=== PATIENT | female | born 1965 | race African-American/Black ===

== ENCOUNTER 2019-01-16 16:17 | Emergency (ER) | payer OTHER ==
[~2019-01-16] VITALS: Ht 165.1 cm; Wt 106.6 kg
--- OUTSIDE RECORDS SUMMARY | 2019-01-16 16:19 | XMS REPORT ---
Author [facility] Address Unknown Phone Unavailable Care Team Providers Care Ostomy Nurse Name Role Phone Unavailable Unavailable Payers Payer Name Policy Type Policy Number Effective Date Expiration Date Problems This patient has no known problems. Allergies, Adverse Reactions, Alerts Allergy Name Allergy Type Status Severity Reaction(s) Onset Date Inactive Date Treating Clinician Comments lisinopril DA Active U 2018-09-30 00:00:00 clarithromycin DA Active U 2018-09-30 00:00:00 trazodone DA Active U 2018-09-30 00:00:00 lisinopril DA Active U 2016-01-22 00:00:00 clarithromycin DA Active U 2016-01-22 00:00:00 trazodone DA Active U 2016-01-22 00:00:00 Medications This patient has no known medications. Encounters Start Date/Time End Date/Time Encounter Type Admission Type Attending [facility] Care Department Encounter ID 2018-10-27 00:00:00 2018-10-27 00:00:00 Outpatient [facility] [id number] 2018-10-24 00:00:00 2018-10-24 00:00:00 Outpatient [facility] [id number] 2018-10-07 00:00:00 2018-10-07 00:00:00 Outpatient [facility] [id number] 2018-10-05 00:00:00 2018-10-05 00:00:00 Outpatient [facility] [id number] 2018-09-20 00:00:00 2018-09-20 00:00:00 Outpatient [facility] [id number] 2018-09-07 11:28:48 2018-09-07 11:28:48 Outpatient [facility] [id number] 2018-09-07 10:35:33 2018-09-07 10:35:33 Outpatient [facility] [id number] 2018-08-31 00:00:00 2018-08-31 00:00:00 Outpatient [facility] [id number] 2018-08-19 00:00:00 2018-08-19 00:00:00 Outpatient [facility] [id number] 2018-08-17 00:00:00 2018-08-17 00:00:00 Outpatient [facility] [id number] 2018-08-09 00:00:00 2018-08-09 00:00:00 Outpatient [facility] [id number] 2018-08-04 00:00:00 2018-08-04 00:00:00 Outpatient [facility] [id number] 2018-07-14 15:00:21 2018-07-14 15:00:21 Outpatient [facility] [id number] 2018-07-05 13:20:59 2018-07-05 13:20:59 Outpatient [facility] [id number] 2018-07-04 00:00:00 2018-07-04 00:00:00 Outpatient [facility] [id number] 2018-06-08 00:00:00 2018-06-08 00:00:00 Outpatient [facility] [id number] 2018-05-10 00:00:00 2018-05-10 00:00:00 Outpatient [facility] [id number] 2018-05-05 15:29:36 2018-05-05 15:29:36 Outpatient [facility] [id number] 2018-04-27 00:00:00 2018-04-27 00:00:00 Outpatient [facility] [id number] 2018-04-20 10:42:28 2018-04-20 10:42:28 Outpatient [facility] [id number] 2018-03-28 08:26:34 2018-03-28 08:26:34 Outpatient [facility] [id number] 2018-03-09 15:00:34 2018-03-09 15:00:34 Outpatient [facility] [id number] 2018-02-21 00:00:00 2018-02-21 00:00:00 Outpatient [facility] [id number] 2018-02-14 00:00:00 2018-02-14 00:00:00 Outpatient [facility] [id number] 2018-02-09 00:00:00 2018-02-09 00:00:00 Outpatient [facility] [id number] 2018-02-07 11:58:24 2018-02-07 11:58:24 Outpatient [facility] [id number] 2018-02-07 11:12:55 2018-02-07 11:12:55 Outpatient [facility] [id number] 2018-02-07 10:04:36 2018-02-07 10:04:36 Outpatient [facility] [id number] 2018-01-31 00:00:00 2018-01-31 00:00:00 Outpatient [facility] [id number] 2018-01-31 00:00:00 2018-01-31 00:00:00 Outpatient [facility] [id number] 2018-01-25 00:00:00 2018-01-25 00:00:00 Outpatient [facility] [id number] 2018-01-07 09:15:58 2018-01-07 09:15:58 Outpatient [facility] [id number] 2018-01-07 08:35:07 2018-01-07 08:35:07 Outpatient [facility] [id number] 2017-12-22 00:00:00 2017-12-22 00:00:00 Outpatient [facility] [id number] 2017-12-20 00:00:00 2017-12-20 00:00:00 Outpatient [facility] [id number] 2017-12-16 13:49:15 2017-12-16 13:49:15 Outpatient [facility] [id number] 2017-12-08 00:00:00 2017-12-08 00:00:00 Outpatient [facility] [id number] 2017-12-02 08:51:27 2017-12-02 08:51:27 Outpatient [facility] [id number] 2017-11-12 11:26:11 2017-11-12 11:26:11 Outpatient [facility] [id number] 2017-11-12 10:20:35 2017-11-12 10:20:35 Outpatient [facility] [id number] 2017-11-04 07:58:26 2017-11-04 07:58:26 Outpatient [facility] [id number] 2017-11-02 11:52:11 2017-11-02 11:52:11 [facility] [id number] 2017-10-19 00:00:00 2017-10-19 00:00:00 Outpatient [facility] [id number] 2017-10-11 14:11:14 2017-10-11 14:11:14 Outpatient [facility] [id number] 2017-10-11 00:00:00 2017-10-11 00:00:00 Outpatient [facility] [id number] 2017-09-16 14:38:37 2017-09-16 14:38:37 Outpatient [facility] [id number] 2017-08-31 12:02:38 2017-08-31 12:02:38 Outpatient [facility] [id number] 2017-08-26 07:53:24 2017-08-26 07:53:24 Outpatient [facility] [id number] 2017-08-26 00:00:00 2017-08-26 00:00:00 Outpatient [facility] [id number] 2017-08-23 00:00:00 2017-08-23 00:00:00 Outpatient [facility] [id number] 2017-08-18 14:18:24 2017-08-18 14:18:24 Outpatient [facility] [id number] 2017-08-16 08:46:20 2017-08-16 08:46:20 Outpatient [facility] [id number] 2017-08-13 00:00:00 2017-08-13 00:00:00 Outpatient [facility] [id number] 2017-08-09 00:00:00 2017-08-09 00:00:00 Outpatient [facility] [id number] 2017-07-29 00:00:00 2017-07-29 00:00:00 Inpatient [facility] [id number] 2017-07-29 00:00:00 2017-07-29 00:00:00 Outpatient [facility] [id number] 2017-07-14 14:53:05 2017-07-14 14:53:05 Outpatient [facility] [id number] 2017-06-24 14:54:10 2017-06-24 14:54:10 Outpatient [facility] [id number] 2017-06-24 13:23:39 2017-06-24 13:23:39 Outpatient [facility] [id number] 2017-06-15 16:02:52 2017-06-15 16:02:52 Outpatient [facility] [id number] 2017-06-14 14:01:32 2017-06-14 14:01:32 Outpatient [facility] [id number] 2017-06-14 00:00:00 2017-06-14 00:00:00 Outpatient [facility] [id number] 2017-06-09 00:00:00 2017-06-09 00:00:00 Outpatient [facility] [id number] 2017-06-02 11:36:50 2017-06-02 11:36:50 Outpatient [facility] [id number] 2017-05-17 15:24:10 2017-05-17 15:24:10 Outpatient [facility] [id number] 2017-05-13 12:05:27 2017-05-13 12:05:27 Outpatient [facility] [id number] 2017-05-13 10:11:59 2017-05-13 10:11:59 Outpatient [facility] [id number] 2017-04-21 00:00:00 2017-04-21 00:00:00 Outpatient [facility] [id number] 2017-04-15 00:00:00 2017-04-15 00:00:00 Outpatient [facility] [id number] 2017-04-14 08:33:20 2017-04-14 08:33:20 Outpatient [facility] [id number] 2017-04-14 08:26:52 2017-04-14 08:26:52 Outpatient [facility] [id number] 2017-04-12 14:36:01 2017-04-12 14:36:01 Outpatient [facility] [id number] 2016-09-02 09:14:09 2016-09-02 09:14:09 Outpatient [facility] [id number]
[2019-01-16] MEDS ORDERED: ORPHENADRINE CITRATE 30 MG/ML VIAL IM ONE (18:00)
[2019-01-16] MEDS ORDERED: KETOROLAC TROMETHAMINE 60 MG/2 ML VIAL IM ONE (18:00)
[2019-01-16] MEDS ORDERED: DEXAMETHASONE SOD PHOS 10 MG/1 ML VIAL IM ONE (18:00)
--- NOTE | 2019-01-16 19:01 | Diagnostic Imaging Report ---
HIP RIGHT 2-3 VW (+/- PELVIS) - 3 views HISTORY: Pain. Fall. Pain on the right hip. COMPARISON: None available. FINDINGS: Bones: No acute displaced fracture. Osseous alignment is within normal limits. Joints: The joint spaces are well-maintained. Soft tissues: The soft tissues appear unremarkable. IMPRESSION: No acute radiographic abnormality. Signed by: Dr. Jones Mendoza M.D. on 01/16/2019 6:58 PM
--- NOTE | 2019-01-16 19:04 | Diagnostic Imaging Report ---
Lumbar Spine Radiographs: 5 views including bilateral external HISTORY: Pain. Fall. Pain on the right hip. COMPARISON: None available. DISCUSSION: Some of the osseous structures are partially obscured by stool and bowel gas. Grade 1 anterolisthesis of L3 on L4 secondary to facet arthropathy. The alignment of the spine is within normal limits. No displaced fracture or compression deformity is identified. Disc Spaces: Mild multilevel disc space narrowing, especially at L3-L4. Facets: Moderate to severe facet arthrosis in the lower lumbar spine. Mild to moderate degenerative changes in bilateral SI joints. IMPRESSION: Mild to moderate degenerative changes in lumbar spine. No acute osseous abnormalities. Signed by: Dr. Jones Mendoza M.D. on 01/16/2019 7:00 PM
--- NOTE | 2019-01-16 19:07 | Diagnostic Imaging Report ---
THORACIC SPINE 2VW - 2 views HISTORY: Pain. Right-sided hip pain after fall. COMPARISON: None available. FINDINGS: Bones: No acute displaced fracture. Osseous alignment is within normal limits. Joints: The joint spaces are well-maintained. Small multilevel anterior osteophytes. Soft tissues: The soft tissues appear unremarkable. IMPRESSION: No acute radiographic abnormality in the thoracic spine. Signed by: Dr. Jones Mendoza M.D. on 01/16/2019 7:04 PM
== END 2019-01-16 23:34 | disposition home or self-care (01) ==
LOC: ER 16:17
DX: G89.11 Acute pain due to trauma (principal); M54.6 Pain in thoracic spine; M25.551 Pain in right hip; M54.5 Low back pain; W01.0XXA Fall on same level from slipping, tripping and stumbling without subsequent striking against object, initial encounter; Y92.008 Other place in unspecified non-institutional (private) residence as the place of occurrence of the external cause; I10 Essential (primary) hypertension; E11.9 Type 2 diabetes mellitus without complications; E78.5 Hyperlipidemia, unspecified; F41.9 Anxiety disorder, unspecified
CPT/HCPCS: 72070; 72110; 73502; 99283; J1100; J1885; J2360

== ENCOUNTER 2021-03-10 16:24 | Emergency (ER) | payer OTHER ==
[~2021-03-10] VITALS: Ht 165.1 cm; Wt 106.6 kg
[2021-03-10 17:28] LABS: BASOPHILS % 0.5 % (0.0-1.0); EOSINOPHILS # (AUTO) 0.2 (0.0-0.4); EOSINOPHILS % 2.7 % (0.0-6.0); HEMATOCRIT 35.4 % (34.2-44.1); HEMOGLOBIN 11.5 g/dL (12.0-16.0); LYMPHOCYTES % 36.2 % (18.0-39.1); MEAN CORPUSCULAR HEMOGLOBIN 27.7 pg (28-32); MEAN CORPUSCULAR HGB CONC 32.5 g/dL (31-35); MEAN CORPUSCULAR VOLUME 85.3 fL (81-99); MONOCYTES # (AUTO) 0.4 (0.2-0.8); MONOCYTES % 7.7 % (4.4-11.3); NEUTROPHILS % 52.7 % (38.7-80.0); PLATELET COUNT 331 x10e3/uL (140-360); RED BLOOD COUNT 4.15 x10e6/uL (3.6-5.1); RED CELL DISTRIBUTION WIDTH 14.6 % (11.7-14.4)
[2021-03-10 17:52] LABS: AMPHETAMINES SCREEN,URINE NEGATIVE (NEGATIVE); BENZODIAZEPINES SCREEN,URINE NEGATIVE (NEGATIVE); PHENCYCLIDINE SCREEN,URINE NEGATIVE (NEGATIVE)
[2021-03-10 18:49] LABS: ALANINE AMINOTRANSFERASE 121 IU/L (0-55); ALBUMIN 3.7 g/dL (3.5-5.0); ALBUMIN/GLOBULIN RATIO 1.1 (0.8-2.0); ALKALINE PHOSPHATASE 64 IU/L (40-150); ANION GAP 13.9 mmol/L (8-16); BLOOD UREA NITROGEN 21 mg/dL (7-26); BUN/CREATININE RATIO 20 (6-25); CALCIUM 8.7 mg/dL (8.4-10.2); CARBON DIOXIDE 23 mmol/L (22-29); CHLORIDE 109 mmol/L (98-107); CREATINE KINASE 269 IU/L (29-168); CREATININE, SERUM 1.06 mg/dL (0.57-1.11); EST GLOMERULAR FILTRATION RATE > 60 ML/MIN (60-); GLUCOSE 120 mg/dL (74-118); POTASSIUM 3.9 mmol/L (3.5-5.1); SODIUM 142 mmol/L (136-145)
== END 2021-03-10 20:35 | disposition home or self-care (01) ==
LOC: ER 20:27
DX: F41.9 Anxiety disorder, unspecified (principal); R94.31 Abnormal electrocardiogram [ECG] [EKG]; I10 Essential (primary) hypertension; E11.65 Type 2 diabetes mellitus with hyperglycemia; E78.5 Hyperlipidemia, unspecified; K21.9 Gastro-esophageal reflux disease without esophagitis; G47.30 Sleep apnea, unspecified
CPT/HCPCS: 36415; 71046; 80053; 80307; 82550; 82553; 84484; 85025; 93005; 99283

== ENCOUNTER 2021-04-08 20:54 | Emergency (ER) | payer OTHER ==
[~2021-04-08] VITALS: Ht 165.1 cm; Wt 106.6 kg
[2021-04-08 22:40] LABS: BASOPHILS % 0.5 % (0.0-1.0); EOSINOPHILS # (AUTO) 0.1 (0.0-0.4); EOSINOPHILS % 1.3 % (0.0-6.0); HEMATOCRIT 36.6 % (34.2-44.1); HEMOGLOBIN 12.1 g/dL (12.0-16.0); LYMPHOCYTES # (AUTO) 2.5 (1.0-3.2); LYMPHOCYTES % 39.2 % (18.0-39.1); MEAN CORPUSCULAR HEMOGLOBIN 28.5 pg (28-32); MEAN CORPUSCULAR HGB CONC 33.1 g/dL (31-35); MEAN CORPUSCULAR VOLUME 86.3 fL (81-99); MONOCYTES # (AUTO) 0.5 (0.2-0.8); MONOCYTES % 8.5 % (4.4-11.3); NEUTROPHILS # (AUTO) 3.2 (2.1-6.9); NEUTROPHILS % 50.3 % (38.7-80.0); PLATELET COUNT 343 x10e3/uL (140-360); RED BLOOD COUNT 4.24 x10e6/uL (3.6-5.1)
[2021-04-08 22:59] LABS: AMYLASE 34 U/L (25-125); LIPASE 29 U/L (8-78)
[2021-04-08 23:00] LABS: ALANINE AMINOTRANSFERASE 35 IU/L (0-55); ALBUMIN 3.9 g/dL (3.5-5.0); ALBUMIN/GLOBULIN RATIO 1.2 (0.8-2.0); ALKALINE PHOSPHATASE 62 IU/L (40-150); ANION GAP 18.4 mmol/L (8-16); BLOOD UREA NITROGEN 14 mg/dL (7-26); BUN/CREATININE RATIO 14 (6-25); CALCIUM 8.5 mg/dL (8.4-10.2); CARBON DIOXIDE 22 mmol/L (22-29); CHLORIDE 105 mmol/L (98-107); CREATININE, SERUM 0.99 mg/dL (0.57-1.11); EST GLOMERULAR FILTRATION RATE > 60 ML/MIN (60-); GLUCOSE 155 mg/dL (74-118); POTASSIUM 3.4 mmol/L (3.5-5.1); SODIUM 142 mmol/L (136-145)
[2021-04-08 23:41] LABS: CLARITY,URINE SL CLOUDY (CLEAR); COLOR,URINE AMBER (YELLOW); KETONES,URINE TRACE (NEGATIVE); LEUKOCYTE ESTERASE ,URINE NEGATIVE (NEGATIVE); NITRITE,URINE NEGATIVE (NEGATIVE); PROTEIN,URINE DIPSTICK 1+ (NEGATIVE); URINE UROBILINOGEN 1 mg/dL (0.2 - 1)
[2021-04-08 23:48] LABS: AMORPHOUS SEDIMENT,URINE FEW (FEW); BACTERIA,URINE MODERATE /HPF; EPITHELIAL CELLS,URINE MANY /LPF; RBC,URINE 0-5 /HPF (0-5)
[2021-04-09] MEDS ORDERED: SODIUM CHLORIDE 0.9% 50ML 50 ML ONE (01:16)
[2021-04-09] MEDS ORDERED: IOPAMIDOL 370 MG/ML 200 ML INFUS..BTL INJ ONE (01:16)
[2021-04-10] MEDS ORDERED: IBUPROFEN800 MG PO (08:44)
[2021-04-10] MEDS ORDERED: TRICOR145 MG PO (08:46)
[2021-04-10] MEDS ORDERED: NORVASC10 MG PO (08:46)
[2021-04-10] MEDS ORDERED: METOPROLOL TART50 MG PO (08:47)
[2021-04-10] MEDS ORDERED: HYDROCODON-ACE1 EA12 PO (08:48)
[2021-04-10] MEDS ORDERED: TRADJENTA5 MG PO (08:49)
[2021-04-10] MEDS ORDERED: GABAPENTIN300 MG PO (08:49)
[2021-04-10] MEDS ORDERED: LOSARTAN POTASS25 MG PO (08:50)
[2021-04-10] MEDS ORDERED: ASPIRIN81 MG PO (08:50)
[2021-04-10] MEDS ORDERED: AMBIEN5 MG PO (08:50)
[2021-04-10] MEDS ORDERED: BUSPIRONE HCL10 MG PO (08:51)
[2021-04-10] MEDS ORDERED: GLYBURIDE5 MG PO (08:57)
[2021-04-10] MEDS ORDERED: METFORMIN HCL500 MG PO (08:57)
== END 2021-04-09 00:45 | disposition home or self-care (01) ==
LOC: ER 21:54
DX: R10.33 Periumbilical pain (principal); R19.7 Diarrhea, unspecified; K29.70 Gastritis, unspecified, without bleeding; E11.65 Type 2 diabetes mellitus with hyperglycemia; I10 Essential (primary) hypertension; E78.5 Hyperlipidemia, unspecified; K21.9 Gastro-esophageal reflux disease without esophagitis
CPT/HCPCS: 36415; 74177; 80053; 81001; 82150; 83690; 85025; 99284; Q9967

== ENCOUNTER 2021-04-09 16:27 | Observation (INO) | payer OTHER ==
[~2021-04-09] VITALS: Ht 165.1 cm; Wt 96.6 kg
[2021-04-09 17:26] LABS: BASOPHILS % 0.4 % (0.0-1.0); EOSINOPHILS # (AUTO) 0.1 (0.0-0.4); EOSINOPHILS % 1.4 % (0.0-6.0); HEMATOCRIT 37.6 % (34.2-44.1); HEMOGLOBIN 12.2 g/dL (12.0-16.0); LYMPHOCYTES # (AUTO) 1.7 (1.0-3.2); LYMPHOCYTES % 33.9 % (18.0-39.1); MEAN CORPUSCULAR HEMOGLOBIN 28.2 pg (28-32); MEAN CORPUSCULAR HGB CONC 32.4 g/dL (31-35); MEAN CORPUSCULAR VOLUME 86.8 fL (81-99); MONOCYTES # (AUTO) 0.4 (0.2-0.8); MONOCYTES % 8.5 % (4.4-11.3); NEUTROPHILS # (AUTO) 2.8 (2.1-6.9); NEUTROPHILS % 55.6 % (38.7-80.0); PLATELET COUNT 333 x10e3/uL (140-360); RED BLOOD COUNT 4.33 x10e6/uL (3.6-5.1); RED CELL DISTRIBUTION WIDTH 14.9 % (11.7-14.4)
[2021-04-09 17:48] LABS: ALANINE AMINOTRANSFERASE 31 IU/L (0-55); ALBUMIN 3.6 g/dL (3.5-5.0); ALBUMIN/GLOBULIN RATIO 1.1 (0.8-2.0); ALKALINE PHOSPHATASE 59 IU/L (40-150); ANION GAP 16.2 mmol/L (8-16); BLOOD UREA NITROGEN 9 mg/dL (7-26); BUN/CREATININE RATIO 10 (6-25); CALCIUM 8.2 mg/dL (8.4-10.2); CARBON DIOXIDE 23 mmol/L (22-29); CHLORIDE 106 mmol/L (98-107); CREATINE KINASE 231 IU/L (29-168); CREATININE, SERUM 0.87 mg/dL (0.57-1.11); EST GLOMERULAR FILTRATION RATE > 60 ML/MIN (60-); GLUCOSE 146 mg/dL (74-118); POTASSIUM 3.2 mmol/L (3.5-5.1); SODIUM 142 mmol/L (136-145)
[2021-04-09] MEDS ORDERED: POTASSIUM CHLORIDE 20 MEQ TAB CR PO STA (19:38)
[2021-04-09] MEDS: SODIUM CHLORIDE 0.9% 1000ML 1,000 ML IV SCH (20:22)
[2021-04-09 23:15] VITALS: BP 144/96
[2021-04-09 23:30] VITALS: BP 144/96
[2021-04-10] VITALS (8 sets, daily range): BP systolic 127–177; BP diastolic 82–108
[2021-04-10] MEDS: SODIUM CHLORIDE 0.9% 1000ML 1,000 ML IV SCH ×2 (05:15→11:28)
[2021-04-10 05:27] LABS: BASOPHILS % 0.7 % (0.0-1.0); EOSINOPHILS # (AUTO) 0.1 (0.0-0.4); EOSINOPHILS % 1.8 % (0.0-6.0); HEMATOCRIT 36.3 % (34.2-44.1); HEMOGLOBIN 11.6 g/dL (12.0-16.0); LYMPHOCYTES # (AUTO) 1.8 (1.0-3.2); LYMPHOCYTES % 38.4 % (18.0-39.1); MEAN CORPUSCULAR HEMOGLOBIN 28.2 pg (28-32); MEAN CORPUSCULAR VOLUME 88.1 fL (81-99); MONOCYTES # (AUTO) 0.5 (0.2-0.8); MONOCYTES % 9.9 % (4.4-11.3); NEUTROPHILS # (AUTO) 2.2 (2.1-6.9); PLATELET COUNT 284 x10e3/uL (140-360); RED BLOOD COUNT 4.12 x10e6/uL (3.6-5.1)
[2021-04-10 06:02] LABS: ALANINE AMINOTRANSFERASE 25 IU/L (0-55); ALBUMIN 3.3 g/dL (3.5-5.0); ALBUMIN/GLOBULIN RATIO 1.2 (0.8-2.0); ALKALINE PHOSPHATASE 54 IU/L (40-150); ANION GAP 12.6 mmol/L (8-16); BLOOD UREA NITROGEN 10 mg/dL (7-26); BUN/CREATININE RATIO 11 (6-25); CALCIUM 7.8 mg/dL (8.4-10.2); CARBON DIOXIDE 26 mmol/L (22-29); CHLORIDE 109 mmol/L (98-107); CREATININE, SERUM 0.92 mg/dL (0.57-1.11); EST GLOMERULAR FILTRATION RATE > 60 ML/MIN (60-); GLUCOSE 152 mg/dL (74-118); POTASSIUM 3.6 mmol/L (3.5-5.1); SODIUM 144 mmol/L (136-145)
[2021-04-10] MEDS ORDERED: IBUPROFEN800 MG PO (08:44)
[2021-04-10] MEDS ORDERED: NORVASC10 MG PO (08:46)
[2021-04-10] MEDS ORDERED: TRICOR145 MG PO (08:46)
[2021-04-10] MEDS ORDERED: METOPROLOL TART50 MG PO (08:47)
[2021-04-10] MEDS ORDERED: HYDROCODON-ACE1 EA12 PO (08:48)
[2021-04-10] MEDS ORDERED: TRADJENTA5 MG PO (08:49)
[2021-04-10] MEDS ORDERED: GABAPENTIN300 MG PO (08:49)
[2021-04-10] MEDS ORDERED: LOSARTAN POTASS25 MG PO (08:50)
[2021-04-10] MEDS ORDERED: AMBIEN5 MG PO (08:50)
[2021-04-10] MEDS ORDERED: ASPIRIN81 MG PO (08:50)
[2021-04-10] MEDS ORDERED: BUSPIRONE HCL10 MG PO (08:51)
[2021-04-10] MEDS ORDERED: GLYBURIDE5 MG PO (08:57)
[2021-04-10] MEDS ORDERED: METFORMIN HCL500 MG PO (08:57)
[2021-04-10] MEDS ORDERED: BUSPIRONE HCL 10 MG TABLET PO PRN (09:15)
[2021-04-10] MEDS ORDERED: ZOLPIDEM TARTRATE 5 MG TAB PO PRN (09:15)
[2021-04-10] MEDS ORDERED: HYDROCODONE/APAP 7.5MG-325MG 1 EA TAB PO PRN (09:15)
[2021-04-10] MEDS ORDERED: GABAPENTIN 300 MG CAP PO SCH (10:00)
[2021-04-10] MEDS ORDERED: ASPIRIN 81 MG CHEW TAB PO SCH (10:00)
[2021-04-10] MEDS ORDERED: METOPROLOL TARTRATE 50 MG TAB PO SCH (10:00)
[2021-04-10] MEDS ORDERED: FENOFIBRATE 145 MG TAB PO SCH (10:00)
[2021-04-10] MEDS ORDERED: POTASSIUM CHLORIDE 20 MEQ TAB CR PO ONE (10:00)
[2021-04-10] MEDS ORDERED: AMLODIPINE BESYLATE 10 MG TAB PO SCH (10:00)
[2021-04-10] MEDS ORDERED: LOSARTAN POTASSIUM 25 MG TAB PO SCH (17:00)
== END 2021-04-10 15:50 | disposition home or self-care (01) ==
LOC: ER 16:33 → ERHOLD 20:34 → MED/SURG 23:10
PROVIDERS: ADMIT Internal Medicine; ATTEND Internal Medicine
DX: R55 Syncope and collapse (principal); E87.6 Hypokalemia; E11.9 Type 2 diabetes mellitus without complications; G47.33 Obstructive sleep apnea (adult) (pediatric); F41.9 Anxiety disorder, unspecified; F32.9 Major depressive disorder, single episode, unspecified; G47.00 Insomnia, unspecified; K21.9 Gastro-esophageal reflux disease without esophagitis; Z20.822 Contact with and (suspected) exposure to COVID-19
CPT/HCPCS: 36415 ×2; 71045; 80053 ×2; 82550; 82553; 82948; 84484; 85025 ×2; 93005; 93306; 99284; G0378 ×2; J7030 ×2; U0002

== ENCOUNTER 2021-04-20 19:24 | Emergency (ER) | payer OTHER ==
[~2021-04-20] VITALS: Ht 165.1 cm; Wt 96.6 kg
[~2021-04-20 19:24] MED LIST: AMBIEN5 MG PO; ASPIRIN81 MG PO; BUSPIRONE HCL10 MG PO; GABAPENTIN300 MG PO; GLYBURIDE5 MG PO; HYDROCODON-ACE1 EA12 PO; IBUPROFEN800 MG PO; LOSARTAN POTASS25 MG PO; METFORMIN HCL500 MG PO; METOPROLOL TART50 MG PO; NORVASC10 MG PO; TRADJENTA5 MG PO; TRICOR145 MG PO
== END 2021-04-20 19:51 | disposition home or self-care (01) ==
LOC: ER 19:31
DX: R42 Dizziness and giddiness (principal); F60.0 Paranoid personality disorder; I10 Essential (primary) hypertension; E11.9 Type 2 diabetes mellitus without complications; F41.9 Anxiety disorder, unspecified; E78.5 Hyperlipidemia, unspecified; G47.00 Insomnia, unspecified
CPT/HCPCS: 93005; 99282

== ENCOUNTER 2021-05-03 13:26 | Emergency (ER) | payer OTHER ==
[~2021-05-03] VITALS: Ht 165.1 cm; Wt 96.6 kg
[2021-05-03] MEDS ORDERED: SODIUM CHLORIDE 0.9% 1000ML 1,000 ML IV STA (14:28)
[2021-05-03 15:19] LABS: BASOPHILS % 0.4 % (0.0-1.0); EOSINOPHILS # (AUTO) 0.1 (0.0-0.4); EOSINOPHILS % 1.9 % (0.0-6.0); HEMATOCRIT 39.3 % (34.2-44.1); HEMOGLOBIN 12.5 g/dL (12.0-16.0); LYMPHOCYTES # (AUTO) 1.4 (1.0-3.2); LYMPHOCYTES % 30.4 % (18.0-39.1); MEAN CORPUSCULAR HEMOGLOBIN 28.7 pg (28-32); MEAN CORPUSCULAR HGB CONC 31.8 g/dL (31-35); MEAN CORPUSCULAR VOLUME 90.1 fL (81-99); MONOCYTES # (AUTO) 0.6 (0.2-0.8); MONOCYTES % 11.8 % (4.4-11.3); NEUTROPHILS # (AUTO) 2.6 (2.1-6.9); NEUTROPHILS % 55.3 % (38.7-80.0); PLATELET COUNT 321 x10e3/uL (140-360); RED BLOOD COUNT 4.36 x10e6/uL (3.6-5.1); RED CELL DISTRIBUTION WIDTH 14.8 % (11.7-14.4)
[2021-05-03 15:36] LABS: ALANINE AMINOTRANSFERASE 28 IU/L (0-55); ALBUMIN 3.8 g/dL (3.5-5.0); ALBUMIN/GLOBULIN RATIO 1.1 (0.8-2.0); ALKALINE PHOSPHATASE 53 IU/L (40-150); ANION GAP 16.4 mmol/L (8-16); BLOOD UREA NITROGEN 23 mg/dL (7-26); BUN/CREATININE RATIO 18 (6-25); CALCIUM 8.9 mg/dL (8.4-10.2); CARBON DIOXIDE 20 mmol/L (22-29); CHLORIDE 112 mmol/L (98-107); CREATINE KINASE 292 IU/L (29-168); CREATININE, SERUM 1.28 mg/dL (0.57-1.11); EST GLOMERULAR FILTRATION RATE 52 ML/MIN (60-); GLUCOSE 160 mg/dL (74-118); POTASSIUM 4.4 mmol/L (3.5-5.1); SODIUM 144 mmol/L (136-145)
[2021-05-03 15:51] LABS: CLARITY,URINE HAZY (CLEAR); COLOR,URINE YELLOW (YELLOW)
[2021-05-03 15:56] LABS: BACTERIA,URINE FEW /HPF; EPITHELIAL CELLS,URINE FEW /LPF; KETONES,URINE NEGATIVE (NEGATIVE); LEUKOCYTE ESTERASE ,URINE NEGATIVE (NEGATIVE); NITRITE,URINE NEGATIVE (NEGATIVE); PROTEIN,URINE DIPSTICK NEGATIVE (NEGATIVE); RBC,URINE 0-5 /HPF (0-5); URINE UROBILINOGEN 0.2 mg/dL (0.2 - 1); WBC,URINE (MAN) 0-5 /HPF (0-5)
[2021-05-03 15:57] LABS: AMPHETAMINES SCREEN,URINE NEGATIVE (NEGATIVE); BENZODIAZEPINES SCREEN,URINE NEGATIVE (NEGATIVE); PHENCYCLIDINE SCREEN,URINE NEGATIVE (NEGATIVE)
[2021-05-03 16:41] VITALS: BP 116/72
== END 2021-05-03 16:45 | disposition home or self-care (01) ==
LOC: ER 14:28
DX: R07.89 Other chest pain (principal); R06.02 Shortness of breath; I10 Essential (primary) hypertension; E11.65 Type 2 diabetes mellitus with hyperglycemia; E78.5 Hyperlipidemia, unspecified; E78.00 Pure hypercholesterolemia, unspecified; F41.9 Anxiety disorder, unspecified; G47.30 Sleep apnea, unspecified; F17.210 Nicotine dependence, cigarettes, uncomplicated
CPT/HCPCS: 36415; 71045; 80053; 80307; 81001; 82550; 82553; 84484; 85025; 93005; 99283

== ENCOUNTER 2021-11-15 15:37 | Emergency (ER) | payer OTHER ==
[~2021-11-15] VITALS: Ht 165.1 cm; Wt 96.6 kg
[2021-11-15] MEDS ORDERED: SODIUM CHLORIDE 0.9% 1000ML 1,000 ML IV STA (15:45)
[2021-11-15 16:08] LABS: BASOPHILS % 0.5 % (0.0-1.0); EOSINOPHILS % 0.5 % (0.0-6.0); HEMATOCRIT 41.1 % (34.2-44.1); HEMOGLOBIN 13.4 g/dL (12.0-16.0); LYMPHOCYTES # (AUTO) 1.5 (1.0-3.2); LYMPHOCYTES % 24.8 % (18.0-39.1); MEAN CORPUSCULAR HEMOGLOBIN 29.3 pg (28-32); MEAN CORPUSCULAR HGB CONC 32.6 g/dL (31-35); MEAN CORPUSCULAR VOLUME 89.9 fL (81-99); MONOCYTES # (AUTO) 0.5 (0.2-0.8); MONOCYTES % 8.1 % (4.4-11.3); NEUTROPHILS # (AUTO) 4.1 (2.1-6.9); NEUTROPHILS % 65.9 % (38.7-80.0); PLATELET COUNT 336 x10e3/uL (140-360); RED BLOOD COUNT 4.57 x10e6/uL (3.6-5.1); RED CELL DISTRIBUTION WIDTH 13.4 % (11.7-14.4)
[2021-11-15] MEDS ORDERED: ONDANSETRON HCL INJ 2MG/ML 2ML 2 MG/ML VIAL IV ONE (16:30)
[2021-11-15] MEDS ORDERED: DONNATAL/LIDOCAINE/MAALOX 30 ML SUSP PO ONE (16:30)
[2021-11-15] MEDS ORDERED: FAMOTIDINE 20 MG/2 ML VIAL IV ONE (16:30)
[2021-11-15 16:34] LABS: ALBUMIN 4.2 g/dL (3.5-5.0); ALBUMIN/GLOBULIN RATIO 1.2 (0.8-2.0); ANION GAP 20.3 mmol/L (8-16); CALCIUM 7.9 mg/dL (8.4-10.2); CREATININE, SERUM 1.13 mg/dL (0.57-1.11); POTASSIUM 3.3 mmol/L (3.5-5.1)
[2021-11-15] MEDS ORDERED: LIDOCAINE VISC 2% SOLN 15 ML UDC ONE ×2 (16:35→16:39)
[2021-11-15] MEDS ORDERED: BELLADONNA ALK/PHENOBARBITAL 5 ML UDC ONE (16:35)
[2021-11-15] MEDS ORDERED: MAGNESIUM/ALUMINUM/SIMETHICONE 30 ML UDC ONE (16:36)
[2021-11-15] MEDS ORDERED: ONDANSETRON ODT4 MG PO (16:53)
== END 2021-11-15 19:05 | disposition home or self-care (01) ==
LOC: ER 15:40
DX: R11.2 Nausea with vomiting, unspecified (principal); R19.7 Diarrhea, unspecified; E11.65 Type 2 diabetes mellitus with hyperglycemia; E11.40 Type 2 diabetes mellitus with diabetic neuropathy, unspecified; I10 Essential (primary) hypertension; E78.5 Hyperlipidemia, unspecified; E78.00 Pure hypercholesterolemia, unspecified; G47.30 Sleep apnea, unspecified
CPT/HCPCS: 36415; 80053; 83690; 85025; 99283; J2405; J7030

== ENCOUNTER 2021-12-04 19:17 | Emergency (ER) | payer OTHER ==
[~2021-12-04] VITALS: Ht 165.1 cm; Wt 96.6 kg
[~2021-12-04 19:17] MED LIST changes: +ONDANSETRON ODT4 MG PO
[2021-12-04 20:18] LABS: BASOPHILS % 0.7 % (0.0-1.0); EOSINOPHILS % 0.7 % (0.0-6.0); HEMATOCRIT 40.8 % (34.2-44.1); HEMOGLOBIN 13.2 g/dL (12.0-16.0); LYMPHOCYTES # (AUTO) 1.3 (1.0-3.2); LYMPHOCYTES % 24.2 % (18.0-39.1); MEAN CORPUSCULAR HEMOGLOBIN 30.3 pg (28-32); MEAN CORPUSCULAR HGB CONC 32.4 g/dL (31-35); MEAN CORPUSCULAR VOLUME 93.6 fL (81-99); MONOCYTES # (AUTO) 0.5 (0.2-0.8); MONOCYTES % 9.3 % (4.4-11.3); NEUTROPHILS # (AUTO) 3.5 (2.1-6.9); NEUTROPHILS % 64.9 % (38.7-80.0); PLATELET COUNT 290 x10e3/uL (140-360); RED BLOOD COUNT 4.36 x10e6/uL (3.6-5.1); RED CELL DISTRIBUTION WIDTH 14.6 % (11.7-14.4)
[2021-12-04 20:35] LABS: CALCIUM 7.4 mg/dL (8.4-10.2); CREATININE, SERUM 0.98 mg/dL (0.57-1.11)
[2021-12-04] MEDS ORDERED: POTASSIUM CHLORIDE 20 MEQ TAB CR PO STA (20:41)
[2021-12-04] MEDS ORDERED: MAGNESIUM SULF 1GRAM/DEXTROSE 100 ML IV ONE ×2 (20:45→23:45)
[2021-12-04 23:41] LABS: ANION GAP 21.4 mmol/L (8-16); CALCIUM 7.3 mg/dL (8.4-10.2); CREATININE, SERUM 0.96 mg/dL (0.57-1.11); POTASSIUM 3.4 mmol/L (3.5-5.1)
[2021-12-04 23:42] LABS: MAGNESIUM 0.9 MG/DL (1.3-2.1)
[2021-12-05 01:54] VITALS: BP 141/84
== END 2021-12-05 01:35 | disposition home or self-care (01) ==
LOC: ER 19:37
DX: E87.6 Hypokalemia (principal); E83.42 Hypomagnesemia; R25.2 Cramp and spasm; I10 Essential (primary) hypertension; E11.9 Type 2 diabetes mellitus without complications; E78.5 Hyperlipidemia, unspecified; F41.9 Anxiety disorder, unspecified; G47.30 Sleep apnea, unspecified; E78.00 Pure hypercholesterolemia, unspecified
CPT/HCPCS: 36415; 80048; 83735; 85025; 93005; 99284; J3475 ×2